=== PATIENT | male | born 1960 | race Caucasian/White ===

== ENCOUNTER 2022-04-19 11:22 | Emergency (ER) | payer MEDICAID, SELFPAY ==
[2022-04-19 11:33] VITALS: BP 126/82; PULSE 59; RESP 20; TEMP 36.4; O2SAT 99
--- NOTE | 2022-04-19 11:53 | CRLHL7_ITS ---
For Patients: As a result of the 21st Century Cures Act, medical imaging exams and procedure reports are released immediately into your electronic medical record. You may view this report before your referring provider. If you have questions, please contact your health care provider. INDICATION: Right back and flank pain. History of kidney stone. TECHNIQUE: CT abdomen and pelvis without contrast. COMPARISON: None. FINDINGS: Lower chest: A 5 mm nodule is in the left lower lobe series 3, image 12. Liver: Normal in size and attenuation. No suspicious masses. Gallbladder and bile ducts: No stones or inflammation. No biliary dilatation. Pancreas: Unremarkable. No mass or inflammation. Spleen: Normal in size. No masses. Adrenal glands: Normal in size. No nodules. Kidneys: A small 1-2 mm stone is at the right ureteral vesicle junction visualized on series 2, image 133. This stone is causing the mild hydronephrosis. No other stones. GI tract: Unremarkable. Normal in caliber. No sign of mass or inflammation. Normal appendix. Vasculature: Abdominal aorta is normal in caliber. Lymph nodes: No lymphadenopathy. Peritoneum/Abdominal Wall: Unremarkable. No sign of mass or infiltration. No free air or significant free fluid. Pelvis: Unremarkable. No pelvic masses. Bones: Unremarkable for age. IMPRESSION: 1. Small 1-2 mm stone at the right UVJ causing mild hydronephrosis. 2. 5 mm left lower lobe pulmonary nodule is indeterminate. This should be managed per Fleischner society guidelines which are provided below. SOCIETY GUIDELINES - SOLID NODULES: SINGLE LOW RISK - nodule less than 6 mm: No routine follow-up. - nodule 6-8 mm: CT at 6-12 months, then consider CT at 18-24 months. - nodule greater than 8 mm: Consider CT at 3 months, PET/CT or tissue sampling. SINGLE HIGH RISK - nodule less than 6 mm: Optional CT at 12 months. - nodule 6-8 mm: CT at 6-12 months, then CT at 18-24 months. - nodule greater than 8 mm: Consider CT at 3 months, PET/CT or tissue sampling. MULTIPLE LOW RISK - nodule less than 6 mm: No routine follow-up. - nodule 6-8 mm: CT at 3-6 months, then consider CT at 18-24 months. - nodule greater than 8 mm: CT at 3-6 months, then consider CT at 18-24 months. MULTIPLE HIGH RISK - nodule less than 6 mm: Optional CT at 12 months. - nodule 6-8 mm: CT at 3-6 months, then at 18-24 months. - nodule greater than 8 mm: CT at 3-6 months, then at 18-24 months. Please note that all CT scans at this facility use dose modulation, iterative reconstruction, and/or weight-based dosing when appropriate to reduce radiation dose to as low as reasonably achievable. Dictated by Tam Reyes MD @ 04/19/2022 12:38:38 PM (Electronically Signed)
--- NOTE | 2022-04-19 11:54 | ED_ITS ---
HPI - General Adult General Stated complaint: Lower back RT side pain and Time Seen by Provider: 04/19/22 11:41 History of Present Illness HPI narrative: This 61-year-old male comes in reporting right-sided back pain with associated nausea and vomiting. He states that he has a kidney stone history about 30 years ago. He does report some decreased urine output recently. He has not had any fevers. 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 He states that he did not take his medication this morning which includes aspirin 81 mg and metoprolol 25 mg. Related Data Home Medications Medication Instructions Recorded Confirmed metoprolol tartrate .ROUTE 04/19/22 Previous Rx's Medication Instructions Recorded hydrocodone 5 mg-acetaminophen 325 1 tab PO Q4-6H PRN pain #15 tabs 04/19/22 mg tablet ketorolac 10 mg tablet 10 mg PO Q8H 5 days #15 tabs 04/19/22 ondansetron 4 mg disintegrating 4 mg PO Q6H #10 tabs 04/19/22 tablet Allergies Allergy/AdvReac Type Severity Reaction Status Date / Time No Known Drug Allergies Allergy Verified 04/19/22 11:45 Review of Systems Status of ROS: Reports: 10 or more systems reviewed and unremarkable except as noted in History and below Narrative: Constitutional: No fevers, no weight gain or loss. Eyes: No discharge. No vision changes. HENT: No congestion, no sore throat, no ear pain. Cardiovascular: No chest pain, no palpitations. Respiratory: No shortness of breath, no wheezes, no cough. Gastrointestinal: Nausea and vomiting. Genitourinary: No hematuria. Decreased urine output recently. Musculoskeletal: Normal range of motion. Skin: No rashes, no pruritis. Neurological: No dizziness, weakness, sensory change, speech change. Endo/Heme/Allergies: No bruising or bleeding. No polydipsia. Pysch: no suicidality, no anxiety, no insomnia. All other systems reviewed and are negative. Exam Narrative: Exam Narrative: Constitutional: Well-developed, well-nourished, no acute distress. HEENT: Normocephalic, atraumatic. Neck: Normal range of motion. Nontender. Supple. Heart: Regular. No murmurs. Normal rate. Intact distal pulses. Lungs: Clear to auscultation. No chest discomfort. No wheezes, rhonchi, or rales. Abdomen: Normal bowel sounds. Nontender. No rebound tenderness. Genitalia: Deferred. Back: Pain in the right lower back. Extremities: Normal range of motion. No injury. Skin: Intact. No rash. Warm. No erythema or pallor. Neurologic: No altered sensation. No weakness. Alert and oriented. Psychiatric: No suicidality. No anxiety or depression. No insomnia. Nursing notes and vitals signs are reviewed. Const: Vital Signs, click to edit/add: Vital Signs - 24 hr 04/19/22 11:33 Temperature 97.6 F Pulse Rate [Pulse Oximeter] 59 L Respiratory Rate 20 Blood Pressure [Ri ght Upper Arm] 126/82 Pulse Oximetry 99 Oxygen Delivery Me thod Room Air Course Vital Signs Vital signs: Initial Vital Signs Temperature 97.6 F 04/19/22 11:33 Temperature Source Temporal Artery Scan 04/19/22 11:33 Pulse Rate 59 L 04/19/22 11:33 Pulse Rhythm 04/19/22 11:33 Respiratory Rate 20 04/19/22 11:33 Blood Pressure 126/82 04/19/22 11:33 Blood Pressure Mean 96 04/19/22 11:33 Blood Pressure Position Supine 04/19/22 11:33 Pulse Oximetry 99 04/19/22 11:33 Oxygen Delivery Method 04/19/22 11:33 Vital Signs Temperature 97.6 F 04/19/22 11:33 Pulse Rate 59 L 04/19/22 11:33 Respiratory Rate 20 04/19/22 11:33 Blood Pressure 126/82 04/19/22 11:33 Pulse Oximetry 99 04/19/22 11:33 Oxygen Delivery Method 04/19/22 11:33 Temperature 97.6 F 04/19/22 11:33 Pulse Rate 59 L 04/19/22 11:33 Respiratory Rate 20 04/19/22 11:33 Blood Pressure 126/82 04/19/22 11:33 Pulse Oximetry 99 04/19/22 11:33 Oxygen Delivery Method 04/19/22 11:33 Medical Decision Making MDM Narrative Medical decision making narrative: This patient comes in with symptoms typical of kidney stone. He does have a remote history of kidney stone about 30 years ago. An IV was established and he received medicine for nausea and pain which brought great relief of his symptoms. CT imaging of the abdomen and pelvis does show a 1-2 mm stone in the right ureterovesical junction. The patient is feeling much better and is okay to return home. He did receive prescription for Toradol, [place], and Zofran to be used as needed. He should have no trouble passing this stone without any further assistance. Lab Data Labs: Lab Results 04/19/22 04/19/22 Range/Units 11:45 11:45 WBC 8.51 (4.50-11.00) K/uL RBC 4.98 (4.30-5.90) m/uL Hgb 14.6 (13.5-17.5) gm/dL Hct 43.9 (37.0-53.0) % MCV 88 (80-100) fL MCH 29 (26-34) pg MCHC 33 (32-36) gm/dL RDW Coeff of Josef 12.3 (11.5-15.5) % Plt Count 281 (140-440) K/uL Neut % (Auto) 88.3 H (42.0-72.0) % Lymph % (Auto) 7.9 L (20-44) % Victoria % (Auto) 3.4 (0.0-11.0) % Eos % (Auto) 0.1 (0.0-7.0) % Baso % (Auto) 0.2 (0.0-3.0) % Neut # (Auto) 7.50 H (1.7-7.0) K/uL Lymph # (Auto) 0.70 L (0.90-2.90) K/uL Victoria # (Auto) 0.30 (0.00-0.90) K/UL Eos # (Auto) 0.01 (0.00-0.50) K/uL Baso # (Auto) 0.02 (0.00-0.30) K/uL Sodium 139 (135-149) mmol/L Potassium 3.7 (3.6-5.1) mmol/L Chloride 105 (96-114) mmol/L Carbon Dioxide 24 (20-32) mmol/L BUN 13 (7-30) mg/dL Creatinine 0.7 (0.5-1.5) mg/dL Estimated GFR 105 ml/min Glucose 155 H (60-115) mg/dL Calcium 9.2 (8.4-10.6) mg/dL Imaging Data CT scan - abdomen: Radiologist's impression: 1. Small 1-2 mm stone at the right UVJ causing mild hydronephrosis. 2. 5 mm left lower lobe pulmonary nodule is indeterminate. This should be managed per Fleischner society guidelines which are provided below. SOCIETY GUIDELINES - SOLID NODULES: SINGLE LOW RISK - nodule less than 6 mm: No routine follow-up. Discharge Plan Discharge Clinical Impression: Right ureteral calculus Patient Disposition: Home w/ Parent or Adult Condition: Improved Additional Instructions: Take medication as needed and indicated. Follow up with MD or return if worsening. Prescriptions: New hydrocodone-acetaminophen 5-325 mg tablet 1 tab PO Q4-6H PRN (Reason: pain) Qty: 15 0RF ketorolac 10 mg tablet 10 mg PO Q8H 5 Days Qty: 15 0RF ondansetron 4 mg tablet,disintegrating 4 mg PO Q6H Qty: 10 0RF No Action metoprolol tartrate .ROUTE Follow Up/Referrals: Provider,Not a Local [Primary Care Provider] - Stand Alone Forms: [employer] Info Instructions
[2022-04-19 12:08] LABS: Basophils Absolute Auto 0.02 K/uL (0.00-0.30); Basophils Percent Auto 0.2 % (0.0-3.0); Eosinophils Absolute Auto 0.01 K/uL (0.00-0.50); Eosinophils Percent Auto 0.1 % (0.0-7.0); Hematocrit 43.9 % (37.0-53.0); Hemoglobin* 14.6 gm/dL (13.5-17.5); Immature Granulocytes Abs Auto 0.01 K/uL (0.00-0.30); Immature Granulocytes Pct Auto 0.1 %; Lymphocytes Percent Auto 7.9 % (20-44); Mean Corpuscular HGB Conc 33 gm/dL (32-36); Mean Corpuscular Hemoglobin 29 pg (26-34); Mean Corpuscular Volume 88 fL (80-100); Monocytes Percent Auto 3.4 % (0.0-11.0); Neutrophils Percent Auto 88.3 % (42.0-72.0); Platelet Count* 281 K/uL (140-440); RDW Coefficient of Variation % 12.3 % (11.5-15.5); Red Blood Count 4.98 m/uL (4.30-5.90); White Blood Count* 8.51 K/uL (4.50-11.00)
[2022-04-19] MEDS: HYDROmorphone 0.5 mg/0.5 ml inj IVP (12:09)
[2022-04-19] MEDS: ONDANSETRON 2 MG/ML inj 4 MG IVP (12:09)
[2022-04-19] MEDS: KETOROLAC 30 MG/ML inj IVP (12:09)
[2022-04-19 12:14] LABS: Chloride* 105 mmol/L (96-114); Potassium* 3.7 mmol/L (3.6-5.1); Sodium* 139 mmol/L (135-149)
[2022-04-19 12:16] LABS: Creatinine* 0.7 mg/dL (0.5-1.5); Estimated Glomerular Filt Rate 105 ml/min
[2022-04-19 12:17] LABS: Blood Urea Nitrogen* 13 mg/dL (7-30); Calcium* 9.2 mg/dL (8.4-10.6); Carbon Dioxide* 24 mmol/L (20-32); Glucose* 155 mg/dL (60-115)
[2022-04-19 12:19] LABS: Slide Review Reflex No
[2022-04-19 13:32] VITALS: PULSE 63; RESP 16
== END 2022-04-19 13:36 | disposition home or self-care (01) ==
PROVIDERS: Emergency Provider Emergency Medicine Emergency Medical Services
DX: N20.1 Calculus of ureter (principal)
CPT/HCPCS: 36415; 74176; 80048; 81001; 85025; 96374; 96375; 99284; 99285; J1170; J1885; J2405